=== PATIENT | male | born 1970 | race Asian ===

== ENCOUNTER 2024-10-01 19:23 | Emergency (ER) | payer BC ==
[~2024-10-01] VITALS: Ht 165.1 cm; Wt 63.5 kg
[2024-10-01] MEDS ORDERED: diphenhydrAMINE 50 MG/1 ML VIAL ONE (19:53)
[2024-10-01] MEDS ORDERED: METOCLOPRAMIDE HCL 10 MG/2 ML VIAL ONE (19:53)
[2024-10-01] MEDS: IV NORMAL SALINE 1000 ML BAG IV ONE (20:04)
[2024-10-01] MEDS: METOCLOPRAMIDE HCL 10 MG/2 ML VIAL IV ONE (20:04)
[2024-10-01] MEDS: diphenhydrAMINE 50 MG/1 ML VIAL IV ONE (20:04)
[2024-10-01 20:12] LABS: BASOPHILS # (AUTO) 0.1 K/UL (0.0-0.2); BASOPHILS % (AUTO) 0.6 % (0.0-2.0); EOSINOPHILS # (AUTO) 0.3 K/uL (0.0-0.7); EOSINOPHILS % (AUTO) 3.7 % (0.0-7.0); HEMATOCRIT 41.5 % (36.7-47.1); HEMOGLOBIN 14.1 g/dL (12.5-16.3); LYMPHOCYTES # (AUTO) 2.9 K/uL (0.8-4.8); LYMPHOCYTES % (AUTO) 32.7 % (20.5-51.5); MEAN CORPUSCULAR HEMOGLOBIN 31.6 uug (23.8-33.4); MEAN CORPUSCULAR HGB CONC 34 g/dL (32.5-36.3); MONOCYTES # (AUTO) 0.7 K/uL (0.1-1.30); MONOCYTES % (AUTO) 7.5 % (0.0-11.0); NEUTROPHILS # (AUTO) 4.9 K/uL (1.8-8.9); NEUTROPHILS % (AUTO) 55.5 % (38.5-71.5); PLATELET COUNT (AUTO) 355 K/uL (152-348); RED BLOOD CELL COUNT(AUTO) 4.46 MIL/uL (4.06-5.63); RED CELL DISTRIBUTION WIDTH 12.4 % (12.1-16.2); WHITE BLOOD COUNT (AUTO) 8.8 K/uL (3.6-10.2)
[2024-10-01 20:18] LABS: DIFFERENTIAL COMMENT 1
[2024-10-01 20:29] LABS: ALANINE AMINOTRANSFERASE 30 U/L (16-63); ALBUMIN 3.8 g/dL (3.4-5.0); ALKALINE PHOSPHATASE 112 U/L (50-136); ASPARTATE AMINOTRANSFERASE 16 U/L (15-37); BILIRUBIN,DIRECT 0.3 mg/dL (0.0-0.2); BILIRUBIN,TOTAL 1.1 mg/dL (0.2-1.0); CALCIUM 8.6 mg/dL (8.5-10.1); CARBON DIOXIDE 26 mmol/L (21-32); CHLORIDE 104 mmol/L (98-107); CREATININE 0.9 mg/dL (0.6-1.3); LIPASE 40 U/L (16-77); POTASSIUM 3.1 mmol/L (3.5-5.1); SODIUM SERUM 140 mmol/L (136-145); TOTAL PROTEIN, SERUM 7.7 g/dL (6.4-8.2); UREA NITROGEN, BLOOD 11 mg/dL (7-18)
[2024-10-01 20:35] LABS: GLUCOSE 130 mg/dL (74-106)
[2024-10-01] MEDS ORDERED: ONDA4TAB11 PO (21:27)
[2024-10-01 21:38] VITALS: BP 130/75; TEMP 98.6; O2SAT 100
== END 2024-10-01 21:40 | disposition home or self-care (01) ==
LOC: ER 19:23
DX: R11.2 Nausea with vomiting, unspecified (principal); R42 Dizziness and giddiness; E86.0 Dehydration; R06.00 Dyspnea, unspecified; R07.9 Chest pain, unspecified; R94.31 Abnormal electrocardiogram [ECG] [EKG]
CPT/HCPCS: 99285; 96374; 71045; 96361; 96375; 80076; 80048; 83690; 85025; 84484; 36415; 93005; J1200; J2765; J7040; A4606; A4663